=== PATIENT | female | born 1980 | race Caucasian/White ===

== ENCOUNTER 2018-10-18 08:33 | Inpatient (IN) | payer OTHER ==
[~2018-10-18] VITALS: Ht 165.1 cm; Wt 83.2 kg
[2018-10-18] MEDS ORDERED: PREN1TAB60 PO (08:46)
[2018-10-18] MEDS ORDERED: DOCU-131 PO (08:47)
[2018-10-18] MEDS ORDERED: RANI150T23 PO (08:47)
[2018-10-18] MEDS ORDERED: DOXY1TAB3 PO (08:48)
[2018-10-18] MEDS ORDERED: OXYTOCIN 30U/ 0.9% NaCL 500ML 500 ML IV PRN (08:49)
[2018-10-18] MEDS: D5%-LACTATED RINGERS 1,000 ML IV SCH ×2 (08:49→16:49)
[2018-10-18] MEDS ORDERED: OXYTOCIN 30U/ 0.9% NaCL 500ML 500 ML IV ONE (08:49)
[2018-10-18] MEDS ORDERED: OXYTOCIN 30U/ 0.9% NaCL 500ML 500 ML ONE ×2 (08:56→19:05)
[2018-10-18] MEDS ORDERED: LIDOCAINE 1%, 20ML ONE (08:56)
[2018-10-18] MEDS ORDERED: MISOPROSTOL 200 MCG TABLET ONE (08:56)
[2018-10-18] MEDS: LACTATED RINGERS 1,000 ML IV SCH ×2 (08:58→17:11)
[2018-10-18] MEDS ORDERED: ONDANSETRON 2MG/ML, 2ML IVPush PRN (09:00)
[2018-10-18] MEDS ORDERED: FENTANYL PF 100 MCG/2ML IVPush PRN (09:00)
[2018-10-18 09:22] LABS: BASOPHILS # (AUTO) 0.02 x10^3/uL (0-0.1); BASOPHILS % (AUTO) 0 % (0-1); EOSINOPHILS # (AUTO) 0.03 x10^3/uL (0-0.4); EOSINOPHILS % (AUTO) 1 % (1-7); LYMPHOCYTES # (AUTO) 1.45 x10^3/uL (1-3.4); LYMPHOCYTES % (AUTO) 24 % (22-44); MD NO; MEAN CORPUSCULAR HEMOGLOBIN 30.4 pg (27.0-34.8); MEAN CORPUSCULAR HGB CONC 33.1 g/dL (32.4-35.8); MEAN CORPUSCULAR VOLUME 91.8 fL (80-100); MEAN PLATELET VOLUME 7.4 fL (7.4-10.4); MONOCYTES # (AUTO) 0.32 x10^3/uL (0.2-0.8); MONOCYTES % (AUTO) 5 % (2-9); NEUTROPHILS # (AUTO) 4.11 x10^3/uL (1.8-6.8); NEUTROPHILS % (AUTO) 69 % (42-75); PLATELET COUNT 236 x10^3/uL (130-400); RED BLOOD COUNT 3.96 x10^6/uL (3.82-5.3); RED CELL DISTRIBUTION WIDTH 14.3 % (9.6-15.2)
[2018-10-18] MEDS ORDERED: NEWBORN KIT ONE (09:31)
[2018-10-18] MEDS ORDERED: FENTANYL/BUPIV./NS/PF 250 ML EPIDCONT SCH (17:24)
[2018-10-18] MEDS ORDERED: FENTANYL PF 500 MCG, BUPIVACAINE/PF 0.5%, 30ML 62.5 ML in SODIUM CHLORIDE 0.9% 177.5 ML EPIDCONT SCH (17:30)
[2018-10-18] MEDS ORDERED: FENTANYL PF 100 MCG/2ML ONE (18:59)
[2018-10-18] MEDS ORDERED: IBUPROFEN 600 MG TABLET ONE (19:05)
[2018-10-18] MEDS ORDERED: OXYcodone/APAP 5/325MG TABLET ONE (19:06)
[2018-10-18] MEDS: OXYTOCIN 30U/ 0.9% NaCL 500ML 500 ML IV SCH (19:37)
[2018-10-18] MEDS ORDERED: ONDANSETRON 2MG/ML, 2ML IV PRN (20:00)
[2018-10-18] MEDS ORDERED: OXYcodone/APAP 5/325MG TABLET PO PRN (20:00)
[2018-10-18] MEDS ORDERED: BISACODYL 10 MG SUPP PR PRN (20:00)
[2018-10-18] MEDS ORDERED: IBUPROFEN 800 MG TABLET PO PRN (20:00)
[2018-10-18] MEDS ORDERED: ACETAMINOPHEN 325 MG TABLET PO PRN (20:00)
[2018-10-18] MEDS ORDERED: DOCUSATE 100 MG CAPSULE PO PRN (20:00)
[2018-10-18] MEDS ORDERED: CARBOPROST TROMETHAMINE 250 MCG/ML, 1ML IM PRN (20:00)
[2018-10-18] MEDS ORDERED: GLYCERIN ADULT SUPP PR PRN (20:00)
[2018-10-18] MEDS ORDERED: METOCLOPRAMIDE 5 MG/ML, 2ML IV PRN (20:00)
[2018-10-18] MEDS ORDERED: MISOPROSTOL 200 MCG TABLET PR PRN (20:00)
[2018-10-18] MEDS: IBUPROFEN 600 MG TABLET PO PRN (20:01)
[2018-10-18] MEDS: OXYcodone/APAP 5/325MG TABLET PO PRN (20:01)
[2018-10-18 21:30] VITALS: BP 137/89
[2018-10-19] MEDS: LACTATED RINGERS 1,000 ML IV SCH (00:49)
[2018-10-19 01:20] VITALS: BP 131/89
[2018-10-19] MEDS: OXYcodone/APAP 5/325MG TABLET PO PRN ×2 (02:53→07:50)
[2018-10-19] MEDS: IBUPROFEN 600 MG TABLET PO PRN ×2 (02:53→12:10)
[2018-10-19 05:30] VITALS: BP 135/91
[2018-10-19] MEDS: OXYTOCIN 30U/ 0.9% NaCL 500ML 500 ML IV SCH (05:37)
[2018-10-19 05:50] LABS: BASOPHILS # (AUTO) 0.02 x10^3/uL (0-0.1); BASOPHILS % (AUTO) 0 % (0-1); EOSINOPHILS # (AUTO) 0.01 x10^3/uL (0-0.4); EOSINOPHILS % (AUTO) 0 % (1-7); LYMPHOCYTES # (AUTO) 1.71 x10^3/uL (1-3.4); LYMPHOCYTES % (AUTO) 15 % (22-44); MD NO; MEAN CORPUSCULAR HEMOGLOBIN 31.2 pg (27.0-34.8); MEAN CORPUSCULAR HGB CONC 33.6 g/dL (32.4-35.8); MEAN CORPUSCULAR VOLUME 92.7 fL (80-100); MEAN PLATELET VOLUME 7.8 fL (7.4-10.4); MONOCYTES # (AUTO) 0.64 x10^3/uL (0.2-0.8); MONOCYTES % (AUTO) 6 % (2-9); NEUTROPHILS # (AUTO) 9.17 x10^3/uL (1.8-6.8); NEUTROPHILS % (AUTO) 79 % (42-75); PLATELET COUNT 230 x10^3/uL (130-400); RED BLOOD COUNT 3.15 x10^6/uL (3.82-5.3); RED CELL DISTRIBUTION WIDTH 14.1 % (9.6-15.2)
[2018-10-19 07:45] VITALS: BP 123/83
[2018-10-19] MEDS ORDERED: PRENATAL VIT/IRON/FA 1 EACH TABLET PO SCH (09:00)
[2018-10-19] MEDS ORDERED: IBUP-1222 PO (11:41)
[2018-10-19] MEDS ORDERED: OXYC-302 PO (11:41)
[2018-10-19] MEDS ORDERED: FERR325T18 PO (11:42)
[2018-10-19 12:16] VITALS: BP 134/83
[2018-10-19] MEDS ORDERED: LACTATED RINGERS 1,000 ML IV SCH (13:05)
[2018-10-19] MEDS ORDERED: OXYTOCIN 30U/ 0.9% NaCL 500ML 500 ML IV ONE (13:05)
[2018-10-19] MEDS ORDERED: ONDANSETRON 2MG/ML, 2ML IVPush PRN (13:30)
[2018-10-19] MEDS ORDERED: FENTANYL PF 100 MCG/2ML IVPush PRN (13:30)
[2018-10-19] MEDS ORDERED: MEASLES,MUMPS&RUBELLA VACC/PF 0.5 ML SQ-VACC ONE (16:30)
== END 2018-10-19 17:25 | disposition home or self-care (01) | DRG 806 ==
LOC: LDIP 08:33 → 2NW 21:19
PROVIDERS: ADMIT Student in an Organized Health Care Education/Training Program; ATTEND Student in an Organized Health Care Education/Training Program
PROC: 10E0XZZ Delivery of Products of Conception, External Approach (ICD-10-PCS; principal; 2018-10-18)
PROC: 0KQM0ZZ Repair Perineum Muscle, Open Approach (ICD-10-PCS; 2018-10-18)
PROC: 10907ZC Drainage of Amniotic Fluid, Therapeutic from Products of Conception, Via Natural or Artificial Opening (ICD-10-PCS; 2018-10-18)
PROC: 3E033VJ Introduction of Other Hormone into Peripheral Vein, Percutaneous Approach (ICD-10-PCS; 2018-10-18)
PROC: 0UQGXZZ Repair Vagina, External Approach (ICD-10-PCS; 2018-10-18)
PROC: 0UQMXZZ Repair Vulva, External Approach (ICD-10-PCS; 2018-10-18)
PROC: 3E0134Z Introduction of Serum, Toxoid and Vaccine into Subcutaneous Tissue, Percutaneous Approach (ICD-10-PCS; 2018-10-19)
DX: O10.92 Unspecified pre-existing hypertension complicating childbirth (principal); O99.354 Diseases of the nervous system complicating childbirth; Z37.0 Single live birth; D62 Acute posthemorrhagic anemia; O99.284 Endocrine, nutritional and metabolic diseases complicating childbirth; E78.00 Pure hypercholesterolemia, unspecified; O69.81X0 Labor and delivery complicated by cord around neck, without compression, not applicable or unspecified; G43.909 Migraine, unspecified, not intractable, without status migrainosus; Z82.3 Family history of stroke; Z80.3 Family history of malignant neoplasm of breast; Z82.49 Family history of ischemic heart disease and other diseases of the circulatory system; Z3A.38 38 weeks gestation of pregnancy; O71.82 Other specified trauma to perineum and vulva; O70.1 Second degree perineal laceration during delivery; O90.81 Anemia of the puerperium; Z23 Encounter for immunization
CPT/HCPCS: 36415; 85025; 86850; 86900; G0378; J3010; J2590; J7120

== ENCOUNTER 2018-10-23 17:20 | Inpatient (IN) | payer OTHER ==
[~2018-10-23] VITALS: Ht 165.1 cm; Wt 77.0 kg
[~2018-10-23 17:20] MED LIST: DOCU-131 PO; DOXY1TAB3 PO; FERR325T18 PO; IBUP-1222 PO; OXYC-302 PO; PREN1TAB60 PO; RANI150T23 PO
[2018-10-23] MEDS ORDERED: MAGNESIUM SULF. PMX 20GM/500ML 500 ML IV SCH (17:36)
[2018-10-23] MEDS ORDERED: MAGNESIUM SULF. PMX 20GM/500ML 500 ML IV ONE (17:51)
[2018-10-23 17:52] LABS: BASOPHILS # (AUTO) 0.03 x10^3/uL (0-0.1); BASOPHILS % (AUTO) 0 % (0-1); EOSINOPHILS % (AUTO) 2 % (1-7); LYMPHOCYTES # (AUTO) 1.69 x10^3/uL (1-3.4); LYMPHOCYTES % (AUTO) 25 % (22-44); MD NO; MEAN CORPUSCULAR HGB CONC 32.7 g/dL (32.4-35.8); MEAN CORPUSCULAR VOLUME 94.7 fL (80-100); MEAN PLATELET VOLUME 6.9 fL (7.4-10.4); MONOCYTES # (AUTO) 0.49 x10^3/uL (0.2-0.8); MONOCYTES % (AUTO) 7 % (2-9); NEUTROPHILS # (AUTO) 4.36 x10^3/uL (1.8-6.8); NEUTROPHILS % (AUTO) 66 % (42-75); PLATELET COUNT 337 x10^3/uL (130-400); RED BLOOD COUNT 3.87 x10^6/uL (3.82-5.3)
[2018-10-23] MEDS ORDERED: LABETALOL 5 MG/ML SYRINGE IVPush PRN (18:00)
[2018-10-23] MEDS ORDERED: MAGNESIUM SULFATE PMX 4GM/100M 100 ML IVPB ONE (18:00)
[2018-10-23] MEDS ORDERED: LABETALOL 5MG/ML, 20ML IVPush PRN ×2 (18:00)
[2018-10-23] MEDS ORDERED: hydrALAzine 20 MG/ML, 1ML IVPush PRN (18:00)
[2018-10-23 18:02] LABS: ALANINE AMINOTRANSFERASE 27 U/L (12-78); ALBUMIN 3.1 g/dL (3.4-5.0); ANION GAP 8 mmol/L (5-15); CALCIUM 8.7 mg/dL (8.5-10.1); CHLORIDE 110 mmol/L (98-107); CREATININE 0.77 mg/dL (0.55-1.02)
[2018-10-23 18:03] LABS: BILIRUBIN, DIRECT < 0.1 mg/dL (0.1-0.2)
[2018-10-23 18:04] LABS: MICROSCOPIC AUTO
[2018-10-23 18:04] LABS: ALKALINE PHOSPHATASE 159 U/L (45-117); BILIRUBIN,TOTAL 0.3 mg/dL (0.2-1.0); TOTAL PROTEIN 7.3 g/dL (6.4-8.2)
[2018-10-23] MEDS ORDERED: LABETALOL 200 MG TABLET PO SCH (19:00)
[2018-10-23] MEDS ORDERED: LABETALOL 200 MG TABLET ONE (19:20)
[2018-10-23 19:46] LABS: CREATININE,URINE RANDOM < 13.00 mg/dL; PROTEIN/CREATININE RATIO,URINE < 385 (0-200); TOTAL PROTEIN,URINE RANDOM < 5 mg/dL (0-12)
[2018-10-23 20:11] VITALS: BP 151/97
[2018-10-23] MEDS ORDERED: ACETAMINOPHEN 325 MG TABLET ONE (20:29)
[2018-10-23] MEDS: ACETAMINOPHEN 325 MG TABLET PO PRN (20:35)
[2018-10-23] MEDS ORDERED: HYDROcodone/APAP 5/325 TABLET PO PRN (21:00)
[2018-10-24] MEDS ORDERED: ACETAMINOPHEN 325 MG TABLET ONE ×6 (01:00→20:42)
[2018-10-24] MEDS: ACETAMINOPHEN 325 MG TABLET PO PRN ×6 (01:03→20:46)
[2018-10-24] MEDS ORDERED: MAGNESIUM SULF. PMX 20GM/500ML 500 ML IV ONE ×2 (01:20→17:18)
[2018-10-24] MEDS: LABETALOL 300 MG TABLET PO SCH ×2 (05:18→17:16)
[2018-10-24] MEDS ORDERED: MAGNESIUM SULF. PMX 20GM/500ML 500 ML IV SCH (07:15)
[2018-10-24 07:20] VITALS: BP 138/98
[2018-10-24] MEDS: LACTATED RINGERS 1,000 ML IV PRN ×2 (11:40→12:31)
[2018-10-24] MEDS ORDERED: LABETALOL 5 MG/ML SYRINGE IVPush PRN (14:00)
[2018-10-24] MEDS ORDERED: niFEDipine ER 60 MG TABLET.ER PO ONE (18:29)
[2018-10-24] MEDS ORDERED: niFEDipine ER 60 MG TABLET.ER PO SCH ×2 (18:30→21:00)
[2018-10-24 19:05] VITALS: BP 153/96
[2018-10-24] MEDS ORDERED: SODIUM CHLORIDE FLUSH 10ML SYR IVF SCH (21:00)
[2018-10-24] MEDS ORDERED: DOCUSATE 100 MG CAPSULE ONE (22:13)
[2018-10-24] MEDS: DOCUSATE 100 MG CAPSULE PO SCH (22:29)
[2018-10-25] MEDS ORDERED: ACETAMINOPHEN 325 MG TABLET ONE (01:34)
[2018-10-25] MEDS: ACETAMINOPHEN 325 MG TABLET PO PRN (02:11)
[2018-10-25] MEDS: LABETALOL 300 MG TABLET PO SCH (05:03)
[2018-10-25 06:12] VITALS: BP 112/73
[2018-10-25 07:38] VITALS: BP 123/80
[2018-10-25] MEDS ORDERED: DOCUSATE 100 MG CAPSULE ONE (08:40)
[2018-10-25] MEDS ORDERED: niFEDipine ER 60 MG TABLET.ER PO ONE (08:40)
[2018-10-25] MEDS: DOCUSATE 100 MG CAPSULE PO SCH (08:42)
[2018-10-25] MEDS ORDERED: niFEDipine ER 60 MG TABLET.ER PO SCH (09:00)
== END 2018-10-25 09:04 | disposition home or self-care (01) | DRG 776 ==
LOC: LDOP 17:20 → LDIP 17:36 → UNDOADMIN 17:45 → LDIP 17:45
PROVIDERS: ADMIT Student in an Organized Health Care Education/Training Program; ATTEND Student in an Organized Health Care Education/Training Program
DX: O14.15 Severe pre-eclampsia, complicating the puerperium (principal); O99.63 Diseases of the digestive system complicating the puerperium; O16.5 Unspecified maternal hypertension, complicating the puerperium; E78.00 Pure hypercholesterolemia, unspecified; K21.9 Gastro-esophageal reflux disease without esophagitis; Z82.49 Family history of ischemic heart disease and other diseases of the circulatory system; Z80.3 Family history of malignant neoplasm of breast
CPT/HCPCS: 36415; 80053; 81001; 82248; 82570; 83735; 84156; 84550; 85025; 93005; G0378; J3475; J7120

== ENCOUNTER 2018-10-28 14:16 | Emergency (ER) | payer OTHER ==
[~2018-10-28] VITALS: Ht 165.1 cm; Wt 77.0 kg
--- NOTE | 2018-10-28 14:37 | NUR ---
ERP AT BS.
[2018-10-28] MEDS ORDERED: ONDANSETRON 2MG/ML, 2ML IVPush ONE (15:00)
[2018-10-28] MEDS ORDERED: SODIUM CHLORIDE 0.9% 1,000ML IVBOLUS ONE ×2 (15:00)
[2018-10-28 15:08] LABS: BASOPHILS # (AUTO) 0.03 x10^3/uL (0-0.1); BASOPHILS % (AUTO) 1 % (0-1); EOSINOPHILS # (AUTO) 0.14 x10^3/uL (0-0.4); EOSINOPHILS % (AUTO) 3 % (1-7); LYMPHOCYTES # (AUTO) 1.76 x10^3/uL (1-3.4); LYMPHOCYTES % (AUTO) 31 % (22-44); MD NO; MEAN CORPUSCULAR HEMOGLOBIN 30.8 pg (27.0-34.8); MEAN CORPUSCULAR HGB CONC 32.9 g/dL (32.4-35.8); MEAN CORPUSCULAR VOLUME 93.6 fL (80-100); MEAN PLATELET VOLUME 6.9 fL (7.4-10.4); MONOCYTES # (AUTO) 0.35 x10^3/uL (0.2-0.8); MONOCYTES % (AUTO) 6 % (2-9); NEUTROPHILS # (AUTO) 3.38 x10^3/uL (1.8-6.8); NEUTROPHILS % (AUTO) 60 % (42-75); PLATELET COUNT 379 x10^3/uL (130-400); RED BLOOD COUNT 4.07 x10^6/uL (3.82-5.3); RED CELL DISTRIBUTION WIDTH 14.6 % (9.6-15.2)
--- NOTE | 2018-10-28 15:09 | NUR ---
IV STARTED, BLOOD DRAWN, AND IV BOLUS INFUSING. PT STATES SHE'S FEELING LITTLE BETTER SINCE IVF INFUSING. UNDERSTANDS POC.
[2018-10-28 15:17] LABS: ALBUMIN 3.5 g/dL (3.4-5.0); ANION GAP 9 mmol/L (5-15); CALCIUM 9.1 mg/dL (8.5-10.1); CHLORIDE 109 mmol/L (98-107); CREATININE 0.84 mg/dL (0.55-1.02)
[2018-10-28 15:21] LABS: TROPONIN I < 0.015 ng/mL (0.000-0.045)
[2018-10-28 16:11] LABS: MICROSCOPIC INDICATED
--- NOTE | 2018-10-28 16:11 | NUR ---
2ND LITER BAG INFUSING, PT DOING WELL, VS IMPROVE. NURSING HER SON AT THIS TIME.
[2018-10-28 16:12] LABS: CULTURE INDICATED? YES
[2018-10-28] MEDS ORDERED: CEFTRIAXONE PMX 1GM/50ML 50 ML IV ONE (16:30)
[2018-10-28] MEDS ORDERED: CEFTRIAXONE PMX 1GM/50ML 50 ML ONE (16:39)
--- NOTE | 2018-10-28 16:55 | NUR ---
RV'WD POC WITH PT, SHE VERBALIZES UNDERSTANDING. ABX INFUSING. FAMILY AT BS.
[2018-10-28 17:15] VITALS: BP 121/81
--- NOTE | 2018-10-28 17:39 | NUR ---
ERP WAS IN FOR RE-CHECK, PT TO BE DISCHARGED. FAMILY AT BS.
--- NOTE | 2018-10-28 17:55 | NUR ---
D/C INSTRUCTIONS, MEDS & F/U APPT RV'WD WITH PT, SHE VERBALIZES UNDERSTANDING. PT ASSISTED OUT OF ED VIA WC WITH FAMILY.
== END 2018-10-28 17:58 | disposition home or self-care (01) ==
LOC: ED 14:41
DX: I95.2 Hypotension due to drugs (principal); R55 Syncope and collapse; N30.00 Acute cystitis without hematuria; I10 Essential (primary) hypertension; E78.00 Pure hypercholesterolemia, unspecified; K21.9 Gastro-esophageal reflux disease without esophagitis
CPT/HCPCS: 36415; 71045; 80048; 81001; 82040; 83605; 83880; 84484; 85025; 87077; 87086; 93005; 96361; 96365; 99284; J0696; J7030; 87186